=== PATIENT | female | born 1980 | race Two or more races ===

== ENCOUNTER → 2023-10-12 09:05 | Outpatient (REF) | payer BC, SELFPAY | LOC: WDC 09:05 | PROVIDERS: ATTENDING PHYSICIAN Physician Assistant Medical | DX: N63.10 Unspecified lump in the right breast, unspecified quadrant (principal); N63.12 Unspecified lump in the right breast, upper inner quadrant | CPT/HCPCS: 76642; 77062; 77066 ==

== ENCOUNTER 2024-05-29 14:55 | Emergency (ER) | payer BC, SELFPAY ==
[2024-05-29 15:18] VITALS: BP 135/77
--- NOTE | 2024-05-29 15:22 | ED.SKININJ ---
HPI-Injury
General
Chief Complaint: Head Injury
Source: patient
Exam Limitations: none
Time Seen by Provider: 05/29/24 15:26
Nursing documentation reviewed up to this point in time: agreed with
History of Present Illness-Injury
Initial Injury comments:
44-year-old female was kicked by a miniature horse within the past few hours. She was kicked in the left upper lip. She denies loose or pain in her teeth, she had a tetanus immunization 7 years ago. She denies this being a work-related injury.
She has a sore on the inner upper lip and an abrasion on the outer upper lip
ED Provider Triage
-
Patient seen by provider in Triage?: Seen in Triage
Attestation: A medical screening examination has been initiated by a qualified medical provider. Based on the assessment performed at this time, it has been determined that an emergent medical condition may exist and the patient has been informed
that further medical evaluation and possible additional diagnostic testing may be needed.
HPI: 44-year-old female was kicked by a miniature horse in the upper left lip within the past few hours, tooth punctured her lip. Last Tdap was 2016
GENERAL: Alert , in no apparent distress
EYE: No visual abnormalities.
NECK: Trachea midline
ENT: No visible abnormalities.
LUNGS: No acute respiratory distress
NEUROLOGICAL: Alert and oriented
SKIN: Skin intact. No visible changes.
MUSCULOSKELETAL: Moving extremities normally
PSYCH: Normal and appropriate interaction.
This is a medical evaluation conducted in person to initiate diagnostic evaluation and provide initial therapeutics. Please see further documentation by the treating clinician.
Past History
Past History
ED Past Medical History: None
ED Past Surgical History:
Social History
Tobacco: Non-smoker
Alcohol: Occasional
Personal:
Living: with family
Review of Systems
Review of Systems
Allergies reviewed?: Yes
All Other Systems: ROS reviewed and negative except as documented in HPI and ROS
EENT: Reports other (scrape left upper lip, sore inner upper lip, denies tooth pain/injury)
Phy Exam
Physical Exam
Physical Exam:
PHYSICAL EXAMINATION:
General: no apparent distress, not acutely ill
Neuro: alert and oriented.
ENT: Superficial clean 3 mm abrasion left upper lip. The inner left upper lip has a small puncture wound. Teeth are intact and nontender.
Psychiatric: well kept. interactive and cooperative
Musculoskeletal: Moves with ease
Skin: Warm, pink.
Course
Vital Signs
Initial and Last Documented VS:
Initial Vital Signs
Temp Pulse Resp BP Pulse Ox
98.6 F 82 16 135/77 97
05/29/24 15:18 05/29/24 15:18 05/29/24 15:18 05/29/24 15:18 05/29/24 15:18
Last Documented Vital Signs
Temp Pulse Resp BP Pulse Ox
98.6 F 82 16 135/77 97
05/29/24 15:18 05/29/24 15:18 05/29/24 15:18 05/29/24 15:18 05/29/24 15:18
MDM/Problems Addressed
MDM/Problems Addressed:
44-year-old female was kicked by a miniature horse within the past few hours. She was kicked in the left upper lip. She denies loose or pain in her teeth, she had a tetanus immunization 7 years ago. She denies this being a work-related injury.
She has a sore on the inner upper lip and an abrasion on the outer upper lip
There is no tooth injury, the wounds do not require suturing, should heal well by secondary intention.
*Critical Care Note
Total Time (30-74mins, 75-104mins- exclusive of procedures): Not Applicable
ED Attending Note
-
Portions of this chart may have been created with voice recognition software.� Occasional wrong word or��sound alike� substitutions may have occurred due to the inherent limitations of voice recognition software.
Discharge Plan
Departure
Patient Disposition: Home (Routine Discharge)
Date of Disposition: 05/29/24
Time of Disposition: 15:50
Patient with high blood pressure during this ER visit?: No
Condition: Good
Discharge Problem:
Abrasion of lip, Contusion of lip
Instructions: Contusion (DC), Wound Inside The Mouth
Activity Restrictions/Additional Instructions:
As we discussed, rinse and spit with warm salt water after each meal for 3 days.
Seek medical care immediately for sign of infection which may include increasing pain, swelling, pus drainage, fever
Interventions
Interventions:
*Risk Screen - Suicide Last Done: 05/29/24 15:18
*General Assessment Last Done: 05/29/24 15:49
*Neglect/Abuse Screening Last Done: 05/29/24 15:18
*Nursing Disposition Last Done: 05/29/24 15:50
Discharge Date and Time
Discharge Date/Time: 05/29/24 15:50
Print Language: ICELANDIC
== END 2024-05-29 15:50 | disposition home or self-care (01) ==
LOC: EMR 14:55
PROVIDERS: FAMILY PHYSICIAN Family Medicine
DX: S01.531A Puncture wound without foreign body of lip, initial encounter (principal); S00.511A Abrasion of lip, initial encounter; S00.531A Contusion of lip, initial encounter; W55.12XA Struck by horse, initial encounter
CPT/HCPCS: 99282

== ENCOUNTER → 2024-11-22 12:58 | Outpatient (REF) | payer OTHER, SELFPAY | LOC: WDC 12:58 | PROVIDERS: ATTENDING PHYSICIAN Obstetrics & Gynecology Gynecology; FAMILY PHYSICIAN Physician Assistant Medical | DX: Z12.31 Encounter for screening mammogram for malignant neoplasm of breast (principal) | CPT/HCPCS: 77063; 77067 ==

== ENCOUNTER 2025-01-09 07:08 | Outpatient (RCR) | payer OTHER, SELFPAY | END 2025-01-09 23:59 | disposition home or self-care (01) | LOC: RPT 07:08 | PROVIDERS: ATTENDING PHYSICIAN Obstetrics & Gynecology Gynecology; FAMILY PHYSICIAN Family Medicine | DX: N94.10 Unspecified dyspareunia (principal); M62.89 Other specified disorders of muscle; R35.0 Frequency of micturition; Z73.6 Limitation of activities due to disability | CPT/HCPCS: 97162; 97530 ==

== ENCOUNTER 2025-02-06 06:42 | Outpatient (RCR) | payer OTHER, SELFPAY | END 2025-02-26 23:59 | disposition home or self-care (01) | LOC: RPT 06:42 | PROVIDERS: ATTENDING PHYSICIAN Obstetrics & Gynecology Gynecology; FAMILY PHYSICIAN Family Medicine | DX: N94.10 Unspecified dyspareunia (principal); M62.89 Other specified disorders of muscle; R35.0 Frequency of micturition; Z73.6 Limitation of activities due to disability | CPT/HCPCS: 97112; 97140; 97530 ==

== ENCOUNTER 2025-03-18 07:25 | Outpatient (RCR) | payer OTHER, SELFPAY | END 2025-03-18 23:59 | disposition home or self-care (01) | LOC: RPT 07:25 | PROVIDERS: ATTENDING PHYSICIAN Obstetrics & Gynecology Gynecology; FAMILY PHYSICIAN Family Medicine | DX: N94.10 Unspecified dyspareunia (principal); M62.89 Other specified disorders of muscle; R35.0 Frequency of micturition; Z73.6 Limitation of activities due to disability | CPT/HCPCS: 97014; 97112; 97530 ==

== ENCOUNTER 2025-04-29 06:47 | Outpatient (RCR) | payer OTHER, SELFPAY | END 2025-04-29 23:59 | disposition home or self-care (01) | LOC: RPT 06:47 | PROVIDERS: ATTENDING PHYSICIAN Obstetrics & Gynecology Gynecology; FAMILY PHYSICIAN Family Medicine | DX: N94.10 Unspecified dyspareunia (principal); M62.89 Other specified disorders of muscle; R35.0 Frequency of micturition; Z73.6 Limitation of activities due to disability | CPT/HCPCS: 97014; 97110; 97112; 97140; 97530 ==